=== PATIENT | female | born 1965 | race Two or more races ===

== ENCOUNTER 2016-09-03 14:19 | Emergency (ER) | payer MEDICARE ==
--- NOTE | 2016-09-03 14:27 | ER Document Report ---
ED Medical Screen (RME) - General Stated Complaint: RECTAL BLEEDING Notes: Patient states she's had rectal bleeding for about 1 week turning the entire toilet red frequently I greeted and performed a rapid initial assessment of this patient. Comprehensive ED assessment and evaluation of the patient, analysis of test results and completion of the medical decision making process will be conducted by additional ED providers. TRAVEL OUTSIDE OF THE [place] IN LAST 30 DAYS: No - Related Data Allergies/Adverse Reactions: No Known Allergies Allergy (Unverified 04/27/16 07:40) Past Medical History Past Surgical History: Reports: Hx Kidney (Renal Surgery) - Nephrectomy due to traumatic accident Physical Exam - Vital signs Vitals: Temp Pulse Resp BP Pulse Ox 98.1 F 64 15 113/77 100 09/03/16 14:25 09/03/16 14:25 09/03/16 14:25 09/03/16 14:25 09/03/16 14:25 Course - Vital Signs Vital signs: Temp Pulse Resp BP Pulse Ox 98.1 F 64 15 113/77 100 09/03/16 14:25 09/03/16 14:25 09/03/16 14:25 09/03/16 14:25 09/03/16 14:25
[2016-09-03] MEDS ORDERED: NORMAL SALINE 1000 ML 1,000 ML IV PRN (14:28)
[2016-09-03 14:58] LABS: ABSOLUTE EOSINOPHILS # (AUTO) 0.1 10^3/uL (0.0-0.6); ABSOLUTE LYMPHOCYTES (AUTO) 1.7 10^3/uL (0.5-4.7); ABSOLUTE MONOCYTES (AUTO) 0.4 10^3/uL (0.1-1.4); ABSOLUTE NEUT (AUTO) 3.7 10^3/uL (1.7-8.2); BASOPHILS % (AUTO) 0.6 % (0-2); EOSINOPHILS % (AUTO) 1.7 % (0-6); HEMATOCRIT 36.2 % (36.0-47.0); HEMOGLOBIN 11.7 g/dL (12.0-15.5); HGB HCT DIFFERENCE -1.1; LYMPHOCYTES % (AUTO) 28.7 % (13-45); MEAN CORPUSCULAR HEMOGLOBIN 30.3 pg (27.0-33.4); MEAN CORPUSCULAR HGB CONC 32.4 g/dL (32.0-36.0); MEAN CORPUSCULAR VOLUME 94 fl (80-97); MONOCYTES % (AUTO) 7.1 % (3-13); RED BLOOD COUNT 3.86 10^6/uL (3.72-5.28); RED CELL DISTRIBUTION WIDTH 13.4 % (11.5-14.0); SEGMENTED NEUTROPHILS % (AUTO) 61.9 % (42-78)
[2016-09-03 15:03] LABS: PROTHROMBIN TIME 12.5 SEC (11.4-15.4)
[2016-09-03 15:04] LABS: PARTIAL THROMBOPLASTIN TIME 28.9 SEC (23.5-35.8)
--- NOTE | 2016-09-03 15:13 | ER Document Report ---
ED GI Bleed / Rectal Pain - General Chief Complaint: Rectal Bleeding Stated Complaint: RECTAL BLEEDING Mode of Arrival: Ambulatory Information source: Patient Notes: Patient presents reporting rectal bleeding off and on over the past week. Patient does report some problems with constipation. Last bowel movement was today after taking milk of magnesia. Patient does report mild nausea. Patient reports occasional dysuria. Patient denies any fever. Patient reports lower abdominal pain off and on over the past week that is worse prior to having a bowel movement. Patient denies abdominal tenderness at present. TRAVEL OUTSIDE OF THE [place] IN LAST 30 DAYS: No - HPI Patient complains to provider of: Bright red bld from rect., Hemorrhoids Onset: Last week Timing/Duration: Persistent Quality of pain: Cramping Pain Level: 1 Emesis description: Bright red blood Associated symptoms: Abdominal pain, Constipation. denies: Back pain, Chest pain Exacerbated by: Denies Relieved by: Denies Similar symptoms previously: No Recently seen / treated by doctor: No - Related Data Allergies/Adverse Reactions: No Known Allergies Allergy (Verified 09/03/16 14:28) Past Medical History - General Information source: Patient Last Menstrual Period: menopause - Social History Smoking Status: Never Smoker Chew tobacco use (# tins/day): No Frequency of alcohol use: None Drug Abuse: None Occupation: none Lives with: Family Family History: Reviewed & Not Pertinent Patient has suicidal ideation: No Patient has homicidal ideation: No - Medical History Medical History: Other - Anemia Endocrine Medical History: Reports: Hx Hypothyroidism Renal/ Medical History: Denies: Hx Peritoneal Dialysis Psychiatric Medical History: Reports: Hx Bipolar Disorder Past Surgical History: Reports: Hx Breast Surgery - Breast implants, Hx Gynecologic Surgery - Ovarian cyst, Hx Kidney (Renal Surgery) - Nephrectomy due to traumatic accident Review of Systems - Review of Systems Constitutional: No symptoms reported. denies: Fever, Recent illness EENT: No symptoms reported Cardiovascular: No symptoms reported. denies: Chest pain, Dizziness Respiratory: No symptoms reported. denies: Cough, Short of breath Gastrointestinal: Abdominal pain - Prior to having bowel movements, Nausea, Constipation, Blood streaked bowels, Rectal bleeding, Last bowel movement - Today. denies: Diarrhea, Vomiting Genitourinary: Dysuria. denies: Flank pain Female Genitourinary: No symptoms reported Musculoskeletal: No symptoms reported. denies: Back pain Skin: No symptoms reported Hematologic/Lymphatic: No symptoms reported Neurological/Psychological: No symptoms reported Physical Exam - Vital signs Vitals: Temp Pulse Resp BP Pulse Ox 98.1 F 64 15 113/77 100 09/03/16 14:25 09/03/16 14:25 09/03/16 14:25 09/03/16 14:25 09/03/16 14:25 - General General appearance: Appears well, Alert In distress: None - HEENT Head: Normocephalic, Atraumatic Eyes: Normal Conjunctiva: Normal Nasal: Normal Mouth/Lips: Normal Mucous membranes: Normal Neck: Normal, Supple. No: Lymphadenopathy - Respiratory Respiratory status: No respiratory distress Chest status: Nontender Breath sounds: Normal Chest palpation: Other - Patient with marked left breast enlargement, normal skin color and temperature - Cardiovascular Rhythm: Regular Heart sounds: S1 appreciated, S2 appreciated Murmur: No - Abdominal Inspection: Normal Distension: No distension Bowel sounds: Normal Tenderness: Nontender Organomegaly: No organomegaly - Rectal Tenderness: No Hemorrhoids: External Notes: RN Nadia as standby - Back Back: Normal, Nontender. No: CVA tenderness - Extremities General upper extremity: Normal inspection, Normal strength General lower extremity: Normal inspection, Normal strength - Neurological Neuro grossly intact: Yes [place] Coma Scale Eye Opening: Spontaneous [place] Coma Scale Verbal: Oriented [place] Coma Scale Motor: Obeys Commands [place] Coma Scale Total: 15 - Skin Skin Temperature: Warm Skin Moisture: Dry Skin Color: Normal Course - Re-evaluation Re-evalutation: 09/03/16 Discussed plan of care with patient and her daughter. Patient encouraged to follow-up with primary care provider as well as a performance architect for further evaluation. Patient advised of abnormal renal function test and encouraged to have this test repeated in about a week. Patient advised that she will likely need a colonoscopy to further evaluate her episodes of rectal bleeding although she did have hemorrhoids that could be the cause of her rectal bleeding as well. Patient and her daughter verbalized understanding of instructions. Patient states she's had some difficulty with changing her insurance because it is out of state Medicaid. Patient states that she doesn't want to have to pay co-pays either. Daughter states that she can help her call the Medicaid and Medicare office on Monday morning. Discussed worsening signs or symptoms that patient should return immediately for. Patient verbalized understanding and agrees with plan of care. - Vital Signs Vital signs: Temp Pulse Resp BP Pulse Ox 98.4 F 56 L 18 125/86 H 98 09/03/16 16:55 09/03/16 16:55 09/03/16 16:55 09/03/16 16:55 09/03/16 16:55 - Laboratory Result Diagrams: 09/03/16 14:30 09/03/16 14:30 Laboratory results interpreted by me: 09/03/16 09/03/16 14:30 14:30 Hgb 11.7 L BUN 21 H Est GFR ( Amer) 59 L Est GFR (Non-Af Amer) 49 L Glucose 54 L AST 38 H 09/03/16 16:44 Labs- Entire Visit 09/03/16 09/03/16 09/03/16 14:30 14:30 14:30 WBC 6.0 RBC 3.86 Hgb 11.7 L Hct 36.2 MCV 94 MCH 30.3 MCHC 32.4 RDW 13.4 Plt Count 302 Seg Neutrophils % 61.9 Lymphocytes % 28.7 Monocytes % 7.1 Eosinophils % 1.7 Basophils % 0.6 Absolute Neutrophils 3.7 Absolute Lymphocytes 1.7 Absolute Monocytes 0.4 Absolute Eosinophils 0.1 Absolute Basophils 0.0 PT INR APTT Sodium 139.9 Potassium 4.0 Chloride 100 Carbon Dioxide 28 Anion Gap 12 BUN 21 H Creatinine 1.16 Est GFR ( Amer) 59 L Est GFR (Non-Af Amer) 49 L Glucose 54 L Calcium 9.5 Magnesium Total Bilirubin 0.3 Direct Bilirubin 0.0 AST 38 H ALT 45 Alkaline Phosphatase 44 Troponin I < 0.012 Total Protein 7.6 Albumin 4.0 Lipase 263.6 Urine Color Urine Appearance Urine pH Ur Specific [place] Urine Protein Urine Glucose (UA) Urine Ketones Urine Blood Urine Nitrite Urine Bilirubin Urine Urobilinogen Ur Leukocyte Esterase Urine WBC (Auto) Urine RBC (Auto) Squamous Epi Cells Auto Urine Mucus (Auto) Urine Ascorbic Acid Stool Occult Blood 09/03/16 09/03/16 09/03/16 14:30 14:30 14:30 WBC RBC Hgb Hct MCV MCH MCHC RDW Plt Count Seg Neutrophils % Lymphocytes % Monocytes % Eosinophils % Basophils % Absolute Neutrophils Absolute Lymphocytes Absolute Monocytes Absolute Eosinophils Absolute Basophils PT 12.5 INR 0.91 APTT 28.9 Sodium Potassium Chloride Carbon Dioxide Anion Gap BUN Creatinine Est GFR ( Amer) Est GFR (Non-Af Amer) Glucose Calcium Magnesium 2.3 Total Bilirubin Direct Bilirubin AST ALT Alkaline Phosphatase Troponin I Total Protein Albumin Lipase Urine Color YELLOW Urine Appearance SLIGHTLY-CLOUDY Urine pH 7.0 Ur Specific [place] 1.016 Urine Protein NEGATIVE Urine Glucose (UA) NEGATIVE Urine Ketones NEGATIVE Urine Blood NEGATIVE Urine Nitrite NEGATIVE Urine Bilirubin NEGATIVE Urine Urobilinogen NEGATIVE Ur Leukocyte Esterase NEGATIVE Urine WBC (Auto) 1 Urine RBC (Auto) 1 Squamous Epi Cells Auto 1 Urine Mucus (Auto) RARE Urine Ascorbic Acid NEGATIVE Stool Occult Blood 09/03/16 14:58 WBC RBC Hgb Hct MCV MCH MCHC RDW Plt Count Seg Neutrophils % Lymphocytes % Monocytes % Eosinophils % Basophils % Absolute Neutrophils Absolute Lymphocytes Absolute Monocytes Absolute Eosinophils Absolute Basophils PT INR APTT Sodium Potassium Chloride Carbon Dioxide Anion Gap BUN Creatinine Est GFR ( Amer) Est GFR (Non-Af Amer) Glucose Calcium Magnesium Total Bilirubin Direct Bilirubin AST ALT Alkaline Phosphatase Troponin I Total Protein Albumin Lipase Urine Color Urine Appearance Urine pH Ur Specific [place] Urine Protein Urine Glucose (UA) Urine Ketones Urine Blood Urine Nitrite Urine Bilirubin Urine Urobilinogen Ur Leukocyte Esterase Urine WBC (Auto) Urine RBC (Auto) Squamous Epi Cells Auto Urine Mucus (Auto) Urine Ascorbic Acid Stool Occult Blood NEGATIVE 09/03/16 16:45 - EKG Interpretation by Oh EKG shows normal: Sinus rhythm Rate: Normal Rhythm: NSR Discharge - Discharge Clinical Impression: Rectal bleeding, Abnormal renal function test Hemorrhoid Qualifiers: Hemorrhoid type: unspecified Qualified Code(s): K64.9 - Unspecified hemorrhoids Condition: Stable Disposition: HOME, SELF-CARE Instructions: Rectal Bleeding, Unclear Cause ([facility]), Hemorrhoids ([facility]), Kidney Function Abnormality ([facility]) Additional Instructions: Return immediately for any new or worsening symptoms Followup with your primary care provider, call tomorrow to make a followup appointment Follow up with a performance architect to further evaluate rectal bleeding. You will likely need a colonoscopy performed for further evaluation. Referrals: [facility] [Provider Group] - Follow up as needed [facility] [Provider Group] - 09/05/16 SÁNCHEZ MERCER MD [ACTIVE STAFF] - Follow up in 3-5 days
[2016-09-03 15:14] LABS: ALANINE AMINOTRANSFERASE 45 U/L (9-52); ALKALINE PHOSPHATASE 44 U/L (38-126); ANION GAP 12 (5-19); ASPARTATE AMINO TRANSFERASE 38 U/L (14-36); BILIRUBIN,TOTAL 0.3 mg/dL (0.2-1.3); BLOOD UREA NITROGEN 21 mg/dL (7-20); CALCIUM 9.5 mg/dL (8.4-10.2); CARBON DIOXIDE 28 mmol/L (22-30); CHLORIDE 100 mmol/L (98-107); CREATININE RESULT 1.16 mg/dL (0.52-1.25); GLUCOSE 54 mg/dL (75-110); LIPASE 263.6 U/L (23-300); SODIUM 139.9 mmol/L (137-145); TOTAL PROTEIN 7.6 g/dL (6.3-8.2)
[2016-09-03 15:15] LABS: ADD ON TESTING BLD IN LAB ACKNOWLEDGE
[2016-09-03 15:17] LABS: APPEARANCE,URINE SLIGHTLY-CLOUDY; BILIRUBIN,URINE NEGATIVE (NEGATIVE); GLUCOSE, URINE NEGATIVE (NEGATIVE); KETONES,URINE NEGATIVE (NEGATIVE); LEUKOCYTE ESTERASE,URINE NEGATIVE (NEGATIVE); NITRITE,URINE NEGATIVE (NEGATIVE); PROTEIN,URINE NEGATIVE (NEGATIVE); URINE SPECIFIC GRAVITY 1.016; UROBILINOGEN,URINE NEGATIVE mg/dL (<2.0)
[2016-09-03 15:32] LABS: MAGNESIUM 2.3 mg/dL (1.6-2.3)
[2016-09-03 17:05] VITALS: BP 125/86
--- NOTE | 2016-09-04 10:05 | EKG REPORT ---
SEVERITY:- NORMAL ECG - SINUS RHYTHM : Confirmed by: Karo Marsh MD 04-Sep-2016 10:04:56
== END 2016-09-03 16:55 | disposition home or self-care (01) ==
LOC: ER 14:19
DX: K62.5 Hemorrhage of anus and rectum (principal); K64.9 Unspecified hemorrhoids; R94.4 Abnormal results of kidney function studies; K59.00 Constipation, unspecified; E03.9 Hypothyroidism, unspecified; Z90.5 Acquired absence of kidney
CPT/HCPCS: 93005; 99283; 96360; 36415; 83690; 83735; 85025; 85610; 85730; 82272; 80053; 81001; 84484; 93010; J7030

== ENCOUNTER 2016-10-10 14:34 | Emergency (ER) | payer MEDICARE ==
[2016-10-10] MEDS ORDERED: NORMAL SALINE 1000 ML 1,000 ML IV ONE ×2 (14:57→16:39)
[2016-10-10] MEDS ORDERED: ALBUTEROL SULFATE 0.083% NEB 2.5 MG/3 ML AMPUL NEB ONE (14:58)
--- NOTE | 2016-10-10 15:03 | ER Document Report ---
ED General - General Chief Complaint: Fever Stated Complaint: FEVER Mode of Arrival: Medic Information source: Patient Notes: This is a 51-year-old female who presents via EMS for 2 day history of cough, body aches, subjective fevers and chills. She states that today she stepped outside to get some fresh air and as she was walking back into the house she became very dizzy and actually fell. She thinks she may have passed out briefly. A neighbor saw her and gave her assistance and called EMS. She states she did not hit her head. She has been coughing up sputum. She is not actually visualized the sputum to be able to tell me what color it is. She states she has never had pneumonia. She did not get a flu shot this year. She has had no recent travel and no known sick contacts. She has had nausea but no vomiting and has tolerated sips of water today. Her appetite has been significantly decreased. TRAVEL OUTSIDE OF THE [place] IN LAST 30 DAYS: No - Related Data Allergies/Adverse Reactions: No Known Allergies Allergy (Verified 09/03/16 14:28) Past Medical History - General Information source: Patient, [facility] Records - Social History Smoking Status: Never Smoker Family History: Reviewed & Not Pertinent Endocrine Medical History: Reports: Hx Hypothyroidism Renal/ Medical History: Denies: Hx Peritoneal Dialysis Psychiatric Medical History: Reports: Hx Bipolar Disorder Past Surgical History: Reports: Hx Breast Surgery - Breast implants, Hx Gynecologic Surgery - Ovarian cyst, Hx Kidney (Renal Surgery) - Nephrectomy due to traumatic accident - Immunizations History of Influenza Vaccine for 05/2016 - 10/2016 Season: No Review of Systems - Review of Systems Notes: REVIEW OF SYSTEMS: CONSTITUTIONAL : As per history of present illness EENT: Denies eye, ear, throat, or mouth pain or symptoms. mild nasal congestion. CARDIOVASCULAR: Denies chest pain. RESPIRATORY: As per history of present illness GASTROINTESTINAL: As per history of present illness GENITOURINARY: Denies difficulty urinating, painful urination, burning, frequency, or blood in urine. MUSCULOSKELETAL: Denies neck or back pain or joint pain or swelling. SKIN: Denies rash or skin lesions. HEMATOLOGIC : Denies easy bruising or bleeding. LYMPHATIC: Denies swollen, enlarged glands. NEUROLOGICAL: Possible brief syncopal episode today as per history of present illness. Denies headache. Denies weakness or paralysis or loss of use of either side. Denies problems with gait or speech. Denies sensory or motor loss. PSYCHIATRIC: Denies anxiety or stress or depression. ALL OTHER SYSTEMS REVIEWED AND NEGATIVE. Physical Exam - Vital signs Vitals: Temp Pulse Resp BP Pulse Ox 99.9 F 88 20 108/66 91 L 10/10/16 14:36 10/10/16 14:36 10/10/16 14:36 10/10/16 14:36 10/10/16 14:36 - Notes Notes: PHYSICAL EXAMINATION: GENERAL: Well-nourished well-developed adult female who appears to feel poorly. She is conversant and answers questions appropriately. HEAD: Atraumatic, normocephalic. EYES: Pupils equal round and reactive to light, extraocular movements intact, sclera anicteric, conjunctiva are normal. ENT: nares patent, oropharynx clear without exudates. Moist mucous membranes. NECK: Normal range of motion, supple without lymphadenopathy LUNGS: Breath sounds bilaterally equal. Scattered faint bilateral extra laboratory wheezes. No rhonchi HEART: Regular rate and rhythm without murmurs ABDOMEN: Soft, nontender, normoactive bowel sounds. No guarding, no rebound. No masses appreciated. EXTREMITIES: Normal range of motion, no pitting or edema. No cyanosis. NEUROLOGICAL: Cranial nerves grossly intact. Normal speech motor strength +5 over 5 bilateral upper and lower extremities. Sensation intact. PSYCH: Normal mood, normal affect. SKIN: Warm, Dry, normal turgor, no rashes or lesions noted. Course - Re-evaluation Re-evalutation: 10/10/16 19:22 Patient reevaluated after IV fluid bolus 2. She is feeling better. She is no longer orthostatic. She will be discharged home. I will treat her with a course of antibiotics for her sinusitis and possible UTI. She will follow up with her primary care physician. We discussed strict return precautions and she is comfortable with the plan. - Vital Signs Vital signs: Temp Pulse Resp BP Pulse Ox 99.9 F 72 17 90/63 L 100 10/10/16 14:36 10/10/16 19:02 10/10/16 18:43 10/10/16 19:02 10/10/16 18:43 - Laboratory Result Diagrams: 10/10/16 15:38 10/10/16 15:38 Laboratory results interpreted by me: 10/10/16 10/10/16 10/10/16 15:38 15:38 15:38 RBC 3.56 L Hgb 11.0 L Hct 31.5 L Seg Neuts % (Manual) 86 H Band Neutrophils % 2 L Lymphocytes % (Manual) 7 L VBG pH 7.46 H VBG pCO2 33.1 L Sodium 129.4 L Potassium 3.4 L Chloride 94 L BUN 6 L Est GFR ( Amer) 57 L Est GFR (Non-Af Amer) 47 L Total Protein 8.5 H Urine Protein Urine Ketones Ur Leukocyte Esterase Urine Ascorbic Acid 10/10/16 17:00 RBC Hgb Hct Seg Neuts % (Manual) Band Neutrophils % Lymphocytes % (Manual) VBG pH VBG pCO2 Sodium Potassium Chloride BUN Est GFR ( Amer) Est GFR (Non-Af Amer) Total Protein Urine Protein 30 H Urine Ketones 20 H Ur Leukocyte Esterase LARGE H Urine Ascorbic Acid 40 H - EKG Interpretation by Me Additional EKG results interpreted by me: 10/10/16 15:54 EKG at 1548 demonstrates normal sinus rhythm with a rate of 79. There is generalized low voltage. There is a normal axis. There are nonspecific T-wave abnormalities which are not significantly changed from prior EKG with the exception of inverted T waves in V4. Discharge - Discharge Clinical Impression: Dehydration, Orthostatic hypotension, Hyponatremia Sinusitis Qualifiers: Sinusitis location: unspecified location Chronicity: acute Recurrence: non- recurrent Qualified Code(s): J01.90 - Acute sinusitis, unspecified UTI (urinary tract infection) Qualifiers: Urinary tract infection type: site unspecified Hematuria presence: without hematuria Qualified Code(s): N39.0 - Urinary tract infection, site not specified Condition: Stable Disposition: HOME, SELF-CARE Additional Instructions: Sinusitis You have sinusitis, an infection of the sinus cavities of the face. The sinuses are air-filled chambers which open into the inside of the nose. Bacteria and pus fill a sinus, causing pain, drainage, and fever. Sinusitis is treated with antibiotics. Often, expectorants (to thin the sinus mucous) or decongestants (to reduce swelling) are prescribed as well. Healing requires seven to 10 days. Avoid chemical fumes, pollens, dusts, and smoke (especially cigarette smoke ). Keep the air humidified in your bedroom and work area and take plenty of liquids by mouth. This condition can be serious if the infection spreads. If your symptoms worsen, or if you develop severe headache, high fever, stiff neck, or a rash, you must call the doctor or return for re-evaluation. URINARY TRACT INFECTION: Your evaluation indicates that you have a urinary tract infection. This is due to germs growing in the bladder. This is a common problem. This infection usually responds quickly to antibiotics. Your antibiotic should be taken exactly as prescribed. Drink plenty of fluids -- three to four quarts a day. Occasionally, a bladder anesthetic will be prescribed to help stop the feeling of urgency until the antibiotic has a chance to clear the infection. This may cause your urine to be dark orange. Certain urine infections require a culture. If the doctor obtained a culture, the results will be back in two days. You should call to see if a change in treatment is needed. A repeat urinalysis after you finish treatment is often recommended. The physician will let you know if further testing is required. Call the doctor if you develop fever, chills, flank pain, inability to urinate, or blood in the urine. ANTIBIOTIC THERAPY: You have been given an antibiotic prescription. It's important that you take all the medication, unless instructed otherwise by your physician. Failure to complete the entire course can result in relapse of your condition. Common side effects of antibiotics include nausea, intestinal cramping, or diarrhea. Women may develop vaginal yeast infections, and babies can get yeast (thrush) in the mouth following the use of antibiotics. Contact your physician if you develop significant side effects from this medication. Allergy to this antibiotic can result in hives, wheezing, faintness, or itching. If symptoms of allergy occur, stop the medication and call the doctor. AMOXICILLIN: Amoxicillin is a member of the penicillin family. It covers the germs likely to cause ear, bronchial, and urinary infections better than plain penicillin. Amoxicillin can be taken without regard to meals. Nausea after taking the medication is rare, but can occur. Diarrhea can occur, particularly in small children. Vaginal yeast infections and oral thrush in infants are also common. Contact your physician if these problems occur. Allergy to penicillins is common. If you have had an allergic reaction to any drug of the penicillin family, you should never take any other penicillin. Notify your doctor at once if you develop hives, itching, swelling, faintness, or shortness of breath. Less serious side effects can include nausea or diarrhea. FOLLOW-UP CARE: If you have been referred to a physician for follow-up care, call the physician s office for an appointment as you were instructed or within the next two days. If you experience worsening or a significant change in your symptoms, notify the physician immediately or return to the Emergency Department at any time for re-evaluation. Prescriptions: Amoxicillin Trihydrate [Amoxil 500 mg Capsule] 500 mg PO TID #30 cap Ondansetron [Zofran Odt 4 mg Tablet] 1 - 2 tab PO Q4H PRN #15 tab.rapdis PRN Reason: For Nausea/Vomiting
[2016-10-10 15:54] LABS: VENOUS BLOOD BASE EXCESS -0.3 mmol/L; VENOUS BLOOD PCO2 33.1 mmHg (35-63); VENOUS BLOOD PH 7.46 (7.30-7.42)
[2016-10-10 16:02] LABS: HEMATOCRIT 31.5 % (36.0-47.0); HGB HCT DIFFERENCE 1.5; MEAN CORPUSCULAR HEMOGLOBIN 30.8 pg (27.0-33.4); MEAN CORPUSCULAR HGB CONC 34.8 g/dL (32.0-36.0); MEAN CORPUSCULAR VOLUME 89 fl (80-97); RED BLOOD COUNT 3.56 10^6/uL (3.72-5.28); RED CELL DISTRIBUTION WIDTH 13.5 % (11.5-14.0)
[2016-10-10 16:10] LABS: PROTHROMBIN TIME 13.1 SEC (11.4-15.4)
[2016-10-10 16:13] LABS: ALANINE AMINOTRANSFERASE 19 U/L (9-52); ALBUMIN 4.3 g/dL (3.5-5.0); ALKALINE PHOSPHATASE 64 U/L (38-126); ANION GAP 10 (5-19); ASPARTATE AMINO TRANSFERASE 26 U/L (14-36); BILIRUBIN,TOTAL 0.5 mg/dL (0.2-1.3); BLOOD UREA NITROGEN 6 mg/dL (7-20); CALCIUM 8.9 mg/dL (8.4-10.2); CARBON DIOXIDE 25 mmol/L (22-30); CHLORIDE 94 mmol/L (98-107); GLUCOSE 90 mg/dL (75-110); POTASSIUM 3.4 mmol/L (3.6-5.0); SODIUM 129.4 mmol/L (137-145); TOTAL PROTEIN 8.5 g/dL (6.3-8.2)
[2016-10-10 16:39] LABS: BAND NEUTROPHILS % (MANUAL) 2 % (3-5); BASOPHILS % (MANUAL) 0 % (0-2); EOSINOPHILS % (MANUAL) 0 % (0-6); HYPOCHROMASIA SLIGHT; LYMPHOCYTES % (MANUAL) 7 % (13-45); TOTAL CELLS COUNTED 100
[2016-10-10 17:15] LABS: APPEARANCE,URINE SLIGHTLY-CLOUDY; BILIRUBIN,URINE NEGATIVE (NEGATIVE); GLUCOSE, URINE NEGATIVE (NEGATIVE); KETONES,URINE 20 mg/dL (NEGATIVE); LEUKOCYTE ESTERASE,URINE LARGE (NEGATIVE); NITRITE,URINE NEGATIVE (NEGATIVE); PROTEIN,URINE 30 mg/dL (NEGATIVE); URINE SPECIFIC GRAVITY 1.021; UROBILINOGEN,URINE NEGATIVE mg/dL (<2.0)
[2016-10-10] MEDS ORDERED: CEFTRIAXONE 1 GM/D5W RTU 50 ML IV ONE (18:47)
--- NOTE | 2016-10-10 20:03 | EKG REPORT ---
SEVERITY:- ABNORMAL ECG - SINUS RHYTHM LOW VOLTAGE THROUGHOUT NONSPECIFIC T ABNORMALITIES, LATERAL LEADS : Confirmed by: Jerald Alejandro 10-Oct-2016 20:03:11
[2016-10-10 21:53] VITALS: BP 101/78
== END 2016-10-10 21:56 | disposition home or self-care (01) ==
LOC: ER 14:34
DX: J01.90 Acute sinusitis, unspecified (principal); N39.0 Urinary tract infection, site not specified; E86.0 Dehydration; I95.1 Orthostatic hypotension; E87.1 Hypo-osmolality and hyponatremia; R50.9 Fever, unspecified; R05 Cough; R52 Pain, unspecified; R42 Dizziness and giddiness
CPT/HCPCS: 93005; 94640; 99284; 96361; 96365; 36415; 87086; 82962; 85025; 85610; 87088; 80053; 81001; 87186; 82803; 83605; 87804; 71020; 93010; J7030; J0696; A9270